=== PATIENT | male | born 1980 | race African-American/Black ===

== ENCOUNTER 2017-09-28 21:51 | Emergency (ER) | payer SELFPAY ==
[2017-09-28] MEDS ORDERED: LIDOCAINE 1% INJ-PF (10 MG/ML) 30 ML SDV ONE (23:08)
[2017-09-28] MEDS ORDERED: MORPHINE SULFATE IR 15 MG TABLET PO ONE (23:24)
[2017-09-28] MEDS ORDERED: ACETAMINOPHEN 325 MG TABLET PO ONE (23:24)
[2017-09-28] MEDS ORDERED: IBUPROFEN 600 MG TABLET PO ONE (23:24)
--- NOTE | 2017-09-28 23:25 | ER Document Report ---
ED General - General Chief Complaint: Insect Bite Stated Complaint: POSSIBLE BUG BITE Time Seen by Provider: 09/28/17 22:16 Notes: Patient is a 37 year old male who presents with 4 days of swelling and pain to the proximal right buttock. The patient states that the area started as a small area of redness and has gotten progressively larger and more painful since that time. He describes the area as having a dull, throbbing, constant pain that is severe. Touching the area worsens the pain. Nothing improves the pain. He denies any history of similar symptoms in the past. He has not seen his general doctor regarding today's concerns. He denies any associated fever or constitutional symptoms. - Related Data Allergies/Adverse Reactions: No Known Allergies Allergy (Verified 09/16/13 15:45) Past Medical History - General Information source: Patient - Social History Smoking Status: Never Smoker Frequency of alcohol use: None Drug Abuse: None Lives with: Spouse/Significant other Family History: Reviewed & Not Pertinent Patient has suicidal ideation: No Patient has homicidal ideation: No Renal/ Medical History: Denies: Hx Peritoneal Dialysis - Immunizations Hx Diphtheria, Pertussis, Tetanus Vaccination: No Review of Systems - Review of Systems Notes: Constitutional: Negative for fever. HENT: Negative for sore throat. Eyes: Negative for visual changes. Cardiovascular: Negative for chest pain. Respiratory: Negative for shortness of breath. Gastrointestinal: Negative for abdominal pain, vomiting or diarrhea. Genitourinary: Negative for dysuria. Musculoskeletal: Negative for back pain. Skin: Positive for right gluteal abscess Neurological: Negative for headaches, weakness or numbness. 10 point ROS negative except as marked above and in HPI. Physical Exam - Vital signs Vitals: Temp Pulse Resp BP Pulse Ox 98.7 F 104 H 16 132/78 H 99 09/28/17 22:09 09/28/17 22:09 09/28/17 22:09 09/28/17 22:09 09/28/17 22:09 Notes: PHYSICAL EXAMINATION: GENERAL: Appears uncomfortable but in no acute distress HEAD: Atraumatic, normocephalic. EYES: sclera anicteric, conjunctiva are normal. ENT: Moist mucous membranes. NECK: Normal range of motion LUNGS: Normal work of breathing HEART: 2+ radial pulses bilaterally EXTREMITIES: no pitting or edema. No cyanosis. NEUROLOGICAL: No focal neurological deficits. Moves all extremities spontaneously and on command. PSYCH: Normal mood, normal affect. SKIN: Warm, Dry, normal turgor, there is a 1 x 2 cm abscess on the proximal medial right buttock approximately 2 cm lateral to the gluteal cleft without surrounding erythema. There is a small amount of purulent drainage being expressed from the central portion of this area of induration. Course - Re-evaluation Re-evalutation: 09/28/17 23:25 Patient presents with a right proximal gluteal abscess without surrounding erythema or findings consistent with a cellulitis. This was incised and drained with expression of approximately 7-8 cc of purulent drainage. The abscess was irrigated, loculations removed with forceps, and packing was placed. The patient has been started on trimethoprim sulfamethoxazole. Aftercare instructions have been provided at the bedside and in writing. At this time will discharge with return precautions and follow-up recommendations. Verbal discharge instructions given a the bedside and opportunity for questions given. Medication warnings reviewed. Patient is in agreement with this plan and has verbalized understanding of return precautions and the need for primary care follow-up in the next 24-72 hours. - Vital Signs Vital signs: Temp Pulse Resp BP Pulse Ox 98.4 F 88 18 135/85 H 100 09/28/17 23:52 09/28/17 23:52 09/28/17 23:52 09/28/17 23:52 09/28/17 23:52 Procedures - Incision and Drainage Right Buttock Type: Complex Anesthetic type: 1% Lidocaine mL's of anesthetic: 10 Blade size: 11 I&D procedure: Betadine prep applied Incision Method: Incision made by scalpel Amount/type of drainage: 8 cc purulent drainage Discharge - Discharge Clinical Impression: Abscess, gluteal, right Condition: Good Disposition: HOME, SELF-CARE Additional Instructions: You were seen for an abscess that required drainage. Please clean this area with soap and water twice daily and apply a topical antibiotic. Dress the area after each cleaning. Please return if you develop fever, vomiting, the pain at the site worsens, you notice spreading redness from the area, or you have any other symptoms that are concerning to you. Take the antibiotics that have been prescribed as directed for the next 7 days. Remove the packing that has been placed if it has not fallen out on its own within the next 48 hours. Please follow-up with your primary care doctor within the next 48 hours. Prescriptions: Sulfamethoxazole/Trimethoprim [Bactrim Ds Tablet] 2 tab PO BID #28 tablet
[2017-09-28 23:53] VITALS: BP 135/85
== END 2017-09-28 23:44 | disposition home or self-care (01) ==
LOC: ER 21:51
PROC: 0H98XZZ Drainage of Buttock Skin, External Approach (ICD-10-PCS; principal; 2017-09-28)
DX: L02.31 Cutaneous abscess of buttock (principal); S30.860A Insect bite (nonvenomous) of lower back and pelvis, initial encounter; W57.XXXA Bitten or stung by nonvenomous insect and other nonvenomous arthropods, initial encounter
CPT/HCPCS: 99283; 10060; A6266